=== PATIENT | male | born 1980 | race Caucasian/White ===

== ENCOUNTER 2024-04-01 00:17 | Observation (INO) | payer OTHER, SELFPAY ==
[2024-04-01 02:23] LABS: ALT (SGPT) 185 U/L (8-55); AST (SGOT) 180 U/L (5-34); Albumin 3.4 g/dL (3.5-5.0); Alkaline Phosphatase 97 U/L (40-110); Anion Gap 14 mmol/L (10-20); BUN (Urea Nitrogen) 26 mg/dL (8.9-20.6); Bilirubin, Total 0.7 mg/dL (0.2-1.2); Calc. Creatinine Clearance 0 mL/min (70-130); Calcium 8.9 mg/dL (7.8-10.44); Carbon Dioxide 20 mmol/L (22-29); Chloride 105 mmol/L (98-107); Estimated GFR 79; Globulin 4.3 g/dL (2.4-3.5); Glucose 92 mg/dL (70-105); Potassium 4.1 mmol/L (3.5-5.1); Protein, Total 7.7 g/dL (6.0-8.3); Sodium 135 mmol/L (136-145)
[2024-04-01 02:26] LABS: #Basophils 0.03 10x3/uL (0.0-0.2); #Eosinphils 0.13 10x3/uL (0.0-0.5); #Monocytes 0.55 10x3/uL (0.0-1.1); #Neutrophils 3.28 10x3/uL (1.5-8.4); %Basophils 0.5 % (0.0-2.0); %Lymphocytes 37.5 % (18.0-47.0); %Monocytes 8.6 % (0.0-10.0); %Neutrophils 51.2 % (40.0-75.0); Hematocrit 41.3 % (38.8-50.0); Mean Corpuscular HGB CONC 33.5 g/dL (32.0-36.0); Mean Corpuscular Hemoglobin 31.8 pg (27.0-33.0); Mean Platelet Volume 13.8 fl (7.4-10.4); Platelet Count 111 10x3/uL (150-450); RBC Distribution Width 15.1 % (11.5-14.5); Red Blood Cell (RBC) Count 4.37 10x6/uL (4.32-5.72); White Blood Cell (WBC) Count 6.3 10x3/uL (3.5-10.5)
[2024-04-01] MEDS ORDERED: Furosemide 40 MG (4 mL) VIAL ONE (03:25)
[2024-04-01 04:44] VITALS: BMI 26.2
[2024-04-01] MEDS: Magnesium Oxide 400 MG TAB PO SCH (07:03)
[2024-04-01 07:28] LABS: Magnesium 1.7 mg/dL (1.6-2.6)
[2024-04-01 07:33] LABS: Troponin I 0.026 ng/mL (< 0.028)
[2024-04-01 09:51] LABS: Amphetamine Detected (NotDetected); Barbiturates Screen Not Detected (NotDetected); Benzodiazepine Screen Not Detected (NotDetected); Cocaine Metabolite Screen Not Detected (NotDetected); Methadone Not Detected (NotDetected); Methamphetamine Detected (NotDetected); Opiate Screen Not Detected (NotDetected); Oxycodone Screen Not Detected (NotDetected); Phencyclidine (PCP) Not Detected (NotDetected); THC/Cannabinoid Screen Detected (NotDetected); Tricyclic Screen Not Detected (NotDetected)
[2024-04-01] MEDS ORDERED: Iopamidol 370 76% 100 ML VIAL ONE (10:58)
[2024-04-01] MEDS ORDERED: Furosemide 20 MG in Sodium Chloride 0.9% 90 ML IVPB SCH (11:26)
[2024-04-01] MEDS: Enoxaparin 40 MG (0.4 mL) SYRINGE SC SCH (11:37)
[2024-04-01] MEDS: traMADol HCl 50 MG TAB PO PRN (13:51)
[2024-04-01] MEDS: Furosemide 20 MG (2 mL) VIAL SLOW IVP SCH (13:52)
[2024-04-01 15:26] LABS: HIV (1/2) Antibody/Antigen Non-Reactive (NonReactive); HIV 1/2 INDEX 0.44 S/CO (<1.00)
[2024-04-01 16:15] LABS: D-Dimer Test 1.99 mcg/mL (0.19-0.50); INR-International Normal Ratio 1.3; PTT 31.6 sec (22.0-33.0); Prothrombin Time 13.8 sec (9.5-12.1)
[2024-04-01 16:17] LABS: Anion Gap 16 mmol/L (10-20); BUN (Urea Nitrogen) 23 mg/dL (8.9-20.6); Calc. Creatinine Clearance 78 mL/min (70-130); Calcium 9.3 mg/dL (7.8-10.44); Carbon Dioxide 27 mmol/L (22-29); Chloride 97 mmol/L (98-107); Estimated GFR 79; Glucose 89 mg/dL (70-105); Magnesium 1.9 mg/dL (1.6-2.6); Potassium 3.7 mmol/L (3.5-5.1); Sodium 136 mmol/L (136-145)
[2024-04-01] MEDS: Gabapentin 100 MG CAP PO SCH (18:19)
[2024-04-01] MEDS ORDERED: Enoxaparin 60 MG (0.6 mL) SYRINGE SC SCH (21:00)
[2024-04-01 22:23] LABS: Hepatitis B Core IgM Abs NONREACTIVE S/CO (NonReactive)
[2024-04-01 22:24] LABS: Hep A IgM AB NONREACTIVE (NonReactive)
[2024-04-01 22:25] LABS: Hep C IgG Ab Reflex HepC Qnt S/CO (NonReactive)
[2024-04-01 22:34] LABS: HBCM Index 0.08 S/CO (0-0.79)
[2024-04-01 22:37] LABS: Hep A IgM S/CO 0.14 S/CO (0-0.79); Hep C Index 20.44 S/CO (0-0.79)
[2024-04-01 23:16] LABS: HBsAg Index 0.27 S/CO (0-0.99); Hep B Surf Ag NONREACTIVE S/CO (NonReactive)
[2024-04-02 04:57] LABS: #Basophils 0.04 10x3/uL (0.0-0.2); #Eosinphils 0.17 10x3/uL (0.0-0.5); #Monocytes 0.44 10x3/uL (0.0-1.1); #Neutrophils 1.94 10x3/uL (1.5-8.4); %Basophils 0.8 % (0.0-2.0); %Eosinophils 3.2 % (0.0-6.0); %Lymphocytes 50.2 % (18.0-47.0); %Monocytes 8.4 % (0.0-10.0); Hematocrit 47.8 % (38.8-50.0); Hemoglobin 16.2 g/dL (13.5-17.5); Mean Corpuscular HGB CONC 33.9 g/dL (32.0-36.0); Mean Corpuscular Hemoglobin 31.7 pg (27.0-33.0); Mean Corpuscular Volume 93.5 fl (81.2-95.1); Mean Platelet Volume 12.8 fl (7.4-10.4); Platelet Count 135 10x3/uL (150-450); RBC Distribution Width 14.8 % (11.5-14.5); Red Blood Cell (RBC) Count 5.11 10x6/uL (4.32-5.72); White Blood Cell (WBC) Count 5.2 10x3/uL (3.5-10.5)
[2024-04-02 05:08] LABS: ALT (SGPT) 171 U/L (8-55); AST (SGOT) 160 U/L (5-34); Albumin 3.2 g/dL (3.5-5.0); Alkaline Phosphatase 87 U/L (40-110); Anion Gap 14 mmol/L (10-20); BUN (Urea Nitrogen) 21 mg/dL (8.9-20.6); Bilirubin, Total 0.9 mg/dL (0.2-1.2); Calc. Creatinine Clearance 91 mL/min (70-130); Carbon Dioxide 24 mmol/L (22-29); Chloride 101 mmol/L (98-107); Estimated GFR 94; Globulin 4.6 g/dL (2.4-3.5); Glucose 85 mg/dL (70-105); Magnesium 1.9 mg/dL (1.6-2.6); Potassium 3.7 mmol/L (3.5-5.1); Protein, Total 7.8 g/dL (6.0-8.3); Sodium 135 mmol/L (136-145)
[2024-04-02] MEDS ORDERED: Furosemide 20 MG (2 mL) VIAL SLOW IVP SCH (09:00)
[2024-04-02] MEDS: Furosemide 20 MG (2 mL) VIAL SLOW IVP SCH ×2 (10:49→18:50)
[2024-04-02] MEDS: Magnesium 2 GM/50 ML(in water) 2 GM in Premix 1 BAG IVPB SCH (14:51)
[2024-04-02] MEDS: Gabapentin 100 MG CAP PO PRN (21:01)
[2024-04-02] MEDS: HYDROcodone/Acetaminophen 5/325 mg Tablet PO PRN (21:02)
[2024-04-03 04:41] LABS: ALT (SGPT) 151 U/L (8-55); AST (SGOT) 123 U/L (5-34); Albumin 3.4 g/dL (3.5-5.0); Alkaline Phosphatase 90 U/L (40-110); Anion Gap 15 mmol/L (10-20); BUN (Urea Nitrogen) 21 mg/dL (8.9-20.6); Calc. Creatinine Clearance 101 mL/min (70-130); Calcium 9.2 mg/dL (7.8-10.44); Carbon Dioxide 25 mmol/L (22-29); Chloride 97 mmol/L (98-107); Estimated GFR 107; Glucose 83 mg/dL (70-105); Magnesium 2.2 mg/dL (1.6-2.6); Potassium 3.8 mmol/L (3.5-5.1); Protein, Total 8.4 g/dL (6.0-8.3); Sodium 133 mmol/L (136-145)
[2024-04-03 09:22] VITALS: BP 102/71; TEMP 97.9
== END 2024-04-03 09:48 | disposition home or self-care (01) ==
LOC: CSHERS 00:17 → CSHTELE 04:10
PROVIDERS: ADMIT Family Medicine; ATTEND Internal Medicine
PROC: B246ZZZ Ultrasonography of Right and Left Heart (ICD-10-PCS; principal; 2024-04-03)
DX: I50.813 Acute on chronic right heart failure (principal); I27.0 Primary pulmonary hypertension; F15.10 Other stimulant abuse, uncomplicated; F12.10 Cannabis abuse, uncomplicated; R74.8 Abnormal levels of other serum enzymes; E87.1 Hypo-osmolality and hyponatremia; D69.6 Thrombocytopenia, unspecified; Z79.899 Other long term (current) drug therapy
CPT/HCPCS: 36415; 71045; 71275; 80053; 80074; 80306; 83735; 83880; 84443; 84484; 85025; 85379; 85610; 85730; 87389; 93005; 93010; 93306; 96374; J1650; J1940; J3475; Q9967